=== PATIENT | male | born 1995 | race Caucasian/White ===

== ENCOUNTER 2021-08-12 01:15 | Emergency (ER) | payer SELFPAY ==
[~2021-08-12] VITALS: Ht 185.4 cm; Wt 104.3 kg
--- NOTE | 2021-08-12 01:15 | NUR ---
ALBERT TRIVEDI, PREBOOK. TAKEN TO CHAIR
[2021-08-12 01:21] VITALS: BP 145/68
[2021-08-12 02:10] VITALS: BP 145/68
--- NOTE | 2021-08-12 02:10 | NUR ---
PATIENT BIB [employer]. PATIENT EXAMINED BY DR. MARTE. PATIENT MEDICALLY CLEARED AND RELEASED IN CUSTODY IN STABLE CONDITION. ORIGINAL PRE-BOOK FORM GIVEN TO OFFICER.
== END 2021-08-12 02:10 ==
LOC: MED 01:15
DX: R21 Rash and other nonspecific skin eruption (principal); Z02.89 Encounter for other administrative examinations
CPT/HCPCS: 99283